=== PATIENT | male | born 1960 | race Caucasian/White ===

== ENCOUNTER 2019-11-16 09:25 | Emergency (ER) | payer BC, SELFPAY ==
[2019-11-16 09:45] VITALS: BP 133/75; PULSE 88; RESP 20; TEMP 36.3; O2SAT 98
--- NOTE | 2019-11-16 10:20 | ED.GENADULT ---
HPI - General Adult General Chief complaint: Ear Stated complaint: ear pain/sinus issues Time Seen by Provider: 11/16/19 10:20 Source: patient and RN notes reviewed Mode of arrival: ambulatory Limitations: no limitations History of Present Illness HPI narrative: 59-year-old male presents with complaints of left ear otalgia, decrease hearing, nasal congestion, and rhinorrhea for 3 days. Ear infection 1 month ago. Denies drainage or tinnitus. Denies injury to ear. Rhinorrhea and nasal congestion. Denies cough. No high fevers or chills. Denies nausea, vomiting, and dizziness. Some parts of this dictation were generated by voice recognition software and may contain typographical and/or grammatical inaccuracies. Related Data Home Medications Medication Instructions Recorded Confirmed lisinopril 40 mg PO DAILY 10/14/19 11/16/19 pantoprazole 40 mg PO DAILY 10/14/19 11/16/19 simvastatin 40 mg PO DAILY 10/14/19 11/16/19 Allergies Allergy/AdvReac Type Severity Reaction Status Date / Time cefdinir Allergy Unknown Diarrhea Verified 10/14/19 10:29 Review of Systems Review of Systems: Narrative: CONSTITUTIONAL: Denies fever, chills, sweats. EYES: Denies visual changes, redness, discharge. ENT: Denies sore throat, ear drainage. Complains of LT otalgia, decrease hearing, rhinorrhea, congestion. CARDIOVASCULAR: Denies chest pain, palpitations, edema. RESPIRATORY: Denies dyspnea, wheezing, cough. GASTROINTESTINAL: Denies abdominal pain, nausea, vomiting, diarrhea. GENITOURINARY: Denies dysuria, hematuria, abnormal discharge. SKIN: Denies rash or itching. MUSCULOSKELETAL: Denies acute back pain, joint pain, or myalgia. NEUROLOGIC: Denies numbness or focal weakness. PSYCHIATRIC: Denies anxiety or depression. All systems reviewed & are unremarkable except as noted in HPI and below. [facility] Past Medical History Medical History (Updated 11/16/19 @ 14:11 by ANA Cedillo) Arthritis History of gastroesophageal reflux (GERD) Hyperlipidemia Hypertension Surgical History Surgical History (Updated 11/16/19 @ 13:38 by ANA Cedillo) No significant past surgical history Family History Family History (Updated 12/16/18 @ 10:56 by DOCTOR UNKNOWN) Grandparent Diabetes mellitus Father Acute myocardial infarction Social History Social History (Updated 11/16/19 @ 13:39 by ANA Cedillo) Smoking packs per day: 0.5 Smoking cigarettes per day: 10.0 Years smoked: 30 Smoking pack-years: 15.00 Smoking status: Current every day smoker Tobacco type: cigarettes Second hand tobacco smoke exposure: No Alcohol intake: current Alcohol use details: Occasional Substance use: never Gender identity (if verbalized by the patient): Male Comments At time of signature, I have reviewed and agree with nursing past medical, surgical, social, and family history. Please see nursing chart for further information. There is no relevant family history pertinent to the presenting complaint. Exam Narrative: Exam Narrative: GENERAL: This is a well-nourished, well-developed patient, in no apparent distress. Talks in full sentences and ambulates with steady gait without dyspnea HEAD: normocephalic, atraumatic. EYES: PERRL. Sclera clear/white. Vision is grossly intact. EARS: Pinna is normal shape and contour. Clear external auditory canals. RT TM pearly sotomayor with good cone of light, no erythema or suppuration. LT TM moderate erythema and bulging, no drainage or suppuration. No tenderness with manipulation. No gross hearing deficit. NOSE: External nose normal with no obvious nasal discharge, nares with mild-moderate redness and enlarge turbinates, no rhinorrhea. THROAT: Mucous membranes moist, posterior pharynx clear. NECK: Neck supple, non-tender without lymphadenopathy, masses or thyromegaly. CARDIOVASCULAR: Regular rate and rhythm without murmurs, gallops, or rubs. RESPIRATORY: Clear to auscult
== END 2019-11-16 10:42 | disposition home or self-care (01) ==
PROVIDERS: Emergency Provider Nurse Practitioner Family; PCP Family Medicine
DX: H66.002 Acute suppurative otitis media without spontaneous rupture of ear drum, left ear (principal); J06.9 Acute upper respiratory infection, unspecified; F17.210 Nicotine dependence, cigarettes, uncomplicated; M19.90 Unspecified osteoarthritis, unspecified site; K21.9 Gastro-esophageal reflux disease without esophagitis; E78.5 Hyperlipidemia, unspecified; I10 Essential (primary) hypertension
CPT/HCPCS: 99213; G0463

== ENCOUNTER 2020-11-01 09:42 | Outpatient (CLI) | payer BC, SELFPAY ==
--- NOTE | ~2020-11-01 | CT_ITS ---
EXAMINATION: CT soft tissue neck w con DATE: 11/01/2020 10:31 INDICATION: Localized enlarged lymph nodes. TECHNIQUE: Computed tomography (CT) of the neck was performed with 75 mL Omnipaque-350 intravenous co ntrast. Automated exposure control and iterative reconstruction technique were employed. The dose-edgardo gth product was 643.64 mGy-cm. COMPARISON: None FINDINGS: The visualized portions of the lung bases demonstrate emphysema. Calcified mediastinal lymp h nodes are consistent with old granulomatous disease. There are 2.6 x 2.0 cm and 1.9 x 1.8 cm masses in superficial right parotid gland. There is a 1.5 x 1.4 cm mass in superficial left parotid gland. There is an enlarged high right internal jugular chain lymph node measuring 2.0 x 1.4 cm. There is a 3.4 x 1.8 cm lipoma in the left submandibular space. There is mucosal thickening in the paranasal sin uses. The mastoid air cells are normal. There is severe cervical spondylosis. IMPRESSION: 1. Bilateral parotid masses. The differential diagnosis includes benign mixed tumor, Warthin tumor, n odal metastatic disease, and primary malignancy. Consider ultrasound-guided fine-needle aspiration. 2. Enlarged high right internal jugular chain lymph node. Reviewed, dictated and finalized at location A. ICAL ROLL OPERATOR IMPRESSION: 1. Bilateral parotid masses. The differential diagnosis includes benign mixed t umor, Warthin tumor, vivien metastatic disease, and primary malignancy. Consider ultrasound-guided fine-needle aspiration. 2. Enlarged high right internal jugular chain lymph node.
== END 2020-11-01 09:43 | disposition home or self-care (01) ==
PROVIDERS: PCP Physician Assistant; Visit Provider Physician Assistant
DX: R59.0 Localized enlarged lymph nodes (principal)
CPT/HCPCS: 70491; Q9967

== ENCOUNTER 2020-11-18 09:07 | Outpatient (CLI) | payer BC, SELFPAY ==
--- NOTE | ~2020-11-18 | US_ITS ---
EXAMINATION: 1. US FNA w image guidance 2. US FNA additional DATE: 11/18/2020 10:27 INDICATION: Bilateral parotid masses. TECHNIQUE: The procedure and its benefits and risks were discussed with the patient. Risks specifically discusse d included bleeding, infection, and nerve injury. The patient verbalized understanding of the risks a nd agreed to proceed. The face and neck was prepped and draped in the usual sterile manner. 1% lidoc juventino was used for local anesthesia. 5 passes were made with a 25G needle into the lesion in the left parotid gland. Appropriate needle location was documented with continuous sonographic guidance. 5 passes were made with a 25G needle into the lesion in the right parotid gland. Appropriate needle location was documented with continuous sonographic guidance. There were no immediate complications. FINDINGS: Grayscale ultrasound images demonstrate needles advanced into a 2.2 cm mass in superficial left parot id gland for biopsy. Grayscale ultrasound images demonstrate needles advanced into a 3.7 cm mass in s uperficial right parotid gland IMPRESSION: 1. Ultrasound-guided fine needle aspiration of a left parotid mass. 2. Ultrasound-guided fine-needle aspiration of a right parotid mass. Reviewed, dictated and finalized at location A. GER METAL IMPRESSION: 1. Ultrasound-guided fine needle aspiration of a left parotid mass. 2. Ultrasound-guided fine-needle aspiration of a right parotid mass.
== END 2020-11-18 09:08 | disposition home or self-care (01) ==
LOC: ANHIMG 09:18
PROVIDERS: PCP Physician Assistant; Visit Provider Otolaryngology
DX: K11.8 Other diseases of salivary glands (principal)
CPT/HCPCS: 10005; 10006; 88173; 88305

== ENCOUNTER 2020-12-15 08:31 | Outpatient (CLI) | payer BC, SELFPAY ==
--- NOTE | 2020-12-15 08:49 | ECG_ITS ---
Measurements Intervals [place] Rate: 83 P: 33 MT: 184 QRS: -40 QRSD: 138 T: 2 QT: 373 QTc: 439 Interpretive Statements SINUS RHYTHM RIGHT BUNDLE BRANCH BLOCK INFERIOR INFARCT, AGE INDETERMINATE BASELINE ARTIFACT- I, II, AVR, AVL, V6 ABNORMAL ECG Electronically Signed On 12-15-2020 9:09:00 PRISON OFFICER by Abner Foster D.O.
== END 2020-12-15 08:32 | disposition home or self-care (01) ==
LOC: ANHSURGERY 08:33
PROVIDERS: PCP Physician Assistant; Visit Provider Otolaryngology
DX: I10 Essential (primary) hypertension (principal); Z01.818 Encounter for other preprocedural examination; I45.10 Unspecified right bundle-branch block
CPT/HCPCS: 93005

== ENCOUNTER → 2020-12-20 00:27 | Outpatient (CLI) | payer BC, SELFPAY ==
[2020-12-20 18:32] LABS: SARS-CoV-2 RNA PCR Negative
== END ==
PROVIDERS: PCP Physician Assistant; Visit Provider Otolaryngology
DX: Z01.812 Encounter for preprocedural laboratory examination (principal); Z20.822 Contact with and (suspected) exposure to COVID-19
CPT/HCPCS: C9803; U0003; U0005

== ENCOUNTER 2020-12-23 00:35 | Day surgery (SDC) | payer BC, SELFPAY ==
[2020-12-14 14:26] VITALS: BMI 29.5
--- NOTE | 2020-12-22 09:24 | PM.IMHP ---
H&P: HPI History of Present Illness Date/Time: 12/22/20 09:24 patient per presents for planned surgical procedure. No changes in symptoms or medical history. 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 Chief Complaint: Right parotid tumor Review of Systems Constitutional: Constitutional: Denies fatigue, Denies fever(s) and Denies lethargy Eyes: Eyes: Denies blurry vision and Denies change in vision ENT: Reports as per HPI Cardiovascular: Cardiovascular: Denies chest pain Respiratory: Respiratory: Denies cough Endocrine: Endocrine: Denies fatigue Hematologic/Lymphatic: Hematologic/Lymphatic: Denies easy bleeding, Denies easy bruising and Denies lymphadenopathy Allergic/Immunologic: Allergic/Immunologic: Denies seasonal rhinorrhea [facility] Past Medical History Medical History (Updated 11/07/20 @ 14:29 by Jose A Ricketts MD) History of gastroesophageal reflux (GERD) Hyperlipidemia Hypertension Surgical History Surgical History No significant past surgical history Family History Family History (Updated 11/07/20 @ 14:05 by Aye Gabriel MA) Grandparent Diabetes mellitus Father Acute myocardial infarction Mother Hypertension Cerebrovascular accident Social History Social History Smoking packs per day: 0.5 Smoking cigarettes per day: 10.0 Years smoked: 30 Smoking pack-years: 15.00 Smoking status: Current every day smoker Tobacco type: cigarettes Second hand tobacco smoke exposure: No Additional smoking assessment comments: 1/2ppd x 30 years Alcohol intake: current Drinks per week: 2 Substance use: never Gender identity (if verbalized by the patient): Male Spiritual care concerns: No Meds Home Medications and Allergies Home Medications Medication Instructions Recorded Confirmed Type aspirin 81 mg tablet,delayed 81 mg PO DAILY 11/20/19 12/14/20 History release xngjmpchhsfh-jea-oclsz acid-vit 1 tablet PO DAILY 11/20/19 12/14/20 History K-lycop 400 mcg-20 mcg-370 mcg tablet diclofenac sodium 75 mg 75 mg PO BID PRN #180 tablet 09/05/20 12/14/20 Rx tablet,delayed release lisinopril 40 mg tablet 40 mg PO DAILY #90 tablet 09/07/20 12/14/20 Rx acetaminophen 500 mg tablet 500 mg PO Q6H PRN 10/25/20 12/14/20 History fexofenadine 180 mg tablet 180 mg PO DAILY 10/25/20 12/14/20 History simvastatin 40 mg tablet 40 mg PO DAILY #90 tablet 10/25/20 12/14/20 Rx triamcinolone acetonide 55 mcg 1 spray INTRANASAL DAILY 10/25/20 12/14/20 History nasal spray aerosol pantoprazole 40 mg tablet,delayed 40 mg PO DAILY #90 tablet 11/24/20 12/14/20 Rx release Allergies Allergy/AdvReac Type Severity Reaction Status Date / Time cefdinir Allergy Mild Diarrhea Verified 12/14/20 14:01 Exam Const: General: cooperative, healthy appearing, comfortable, well developed and alert HENMT: Head: normal to inspection, normocephalic and atraumatic Ears: hearing grossly normal bilaterally, external ears normal, TM's normal bilaterally and EAC's normal General nose exam: Normal external nose present, Normal nares present, No nasal polyps present, Normal nasal mucous membranes and turbinates present and Normal septum present Face and sinus: abnormal facial exam ( Right-sided parotid mass/edema) Mouth: Yes Normal oral and palatal mucosa present, Yes lip normal, Yes tongue normal, Yes oropharynx normal and Yes moist mucous membranes Teeth and gingiva: dentition normal and gingiva normal Throat: posterior oropharynx normal, tonsils normal and uvula midline Eyes: General: appearance normal, both eyes and all related structures Periorbital: periorbital findings normal Eyelids: eyelids normal Conjunctivae: conjunctivae normal Sclera: sclerae normal Neck: Neck: normal visual inspection, full ROM and no lymphadenopathy Thyroid: thyroid normal Lymphatic: no lymphadenopathy noted R
[2020-12-23] VITALS (11 sets, daily range): BP systolic 107–131; BP diastolic 59–83; PULSE 91–107; RESP 16–24; TEMP 36.2–37.1; O2SAT 91–100
--- NOTE | 2020-12-23 07:01 | WPDHPUPDATE1 ---
History and Physical Update Update Date/Time: 12/23/20 07:01 History and Physical has been reviewed, including an updated exam of the patient. There are NO changes in the patient's condition. Risks, benefits, and alternatives have been discussed and questions answered. Patient agrees to proceed with procedure.
--- NOTE | 2020-12-23 07:02 | WPDHPUPDATE1 ---
History and Physical Update Update Date/Time: 12/23/20 07:02 History and Physical has been reviewed, including an updated exam of the patient. There are NO changes in the patient's condition. Risks, benefits, and alternatives have been discussed and questions answered. Patient agrees to proceed with procedure.
[2020-12-23] MEDS: LACTATED RINGERS 1,000 ML 30 ML IV CONT ×2 (08:43→12:19)
--- NOTE | 2020-12-23 08:49 | WPDANESEPPF ---
Anes - Initial Pre Proc Eval Procedure: Operation Date: 12/23/20 10:00 Proposed Procedures p Right Parotidectomy - Jose A Ricketts MD Date/Time: 12/23/20 08:49 Surgeon: Jose A Ricketts MD Pre Op Diagnosis: Right Parotid Mass Patient Data Age: 60 Gender: M Height: 6 ft 2 in Weight: 109 kg Last Vital Signs Temp 97.2 F L 12/23/20 08:19 Pulse 91 12/23/20 08:19 Resp 16 12/23/20 08:19 BP 122/68 12/23/20 08:19 Pulse Ox 100 12/23/20 08:19 Allergies Allergy/AdvReac Type Severity Reaction Status Date / Time cefdinir Allergy Mild Diarrhea Verified 12/23/20 08:28 Home Medications Medication Instructions Recorded Confirmed Type aspirin 81 mg tablet,delayed 81 mg PO DAILY 11/20/19 12/23/20 History release rihnglfcnelc-cal-owtxh acid-vit 1 tablet PO DAILY 11/20/19 12/23/20 History K-lycop 400 mcg-20 mcg-370 mcg tablet diclofenac sodium 75 mg 75 mg PO BID PRN #180 tablet 09/05/20 12/23/20 Rx tablet,delayed release lisinopril 40 mg tablet 40 mg PO DAILY #90 tablet 09/07/20 12/23/20 Rx acetaminophen 500 mg tablet 500 mg PO Q6H PRN 10/25/20 12/23/20 History fexofenadine 180 mg tablet 180 mg PO DAILY 10/25/20 12/14/20 History simvastatin 40 mg tablet 40 mg PO DAILY #90 tablet 10/25/20 12/23/20 Rx triamcinolone acetonide 55 mcg 1 spray INTRANASAL DAILY 10/25/20 12/23/20 History nasal spray aerosol pantoprazole 40 mg tablet,delayed 40 mg PO DAILY #90 tablet 11/24/20 12/23/20 Rx release Patient hx anesthesia problems: none Family hx anesthesia problems: none PMFSH Past Medical History Medical History (Updated 11/07/20 @ 14:29 by Jose A Ricketts MD) History of gastroesophageal reflux (GERD) Hyperlipidemia Hypertension Surgical History Surgical History No significant past surgical history Family History Family History (Updated 11/07/20 @ 14:05 by Aye Gabriel MA) Grandparent Diabetes mellitus Father Acute myocardial infarction Mother Hypertension Cerebrovascular accident Social History Social History Smoking packs per day: 0.5 Smoking cigarettes per day: 10.0 Years smoked: 30 Smoking pack-years: 15.00 Smoking status: Current every day smoker Tobacco type: cigarettes Second hand tobacco smoke exposure: No Additional smoking assessment comments: 1/2ppd x 30 years Alcohol intake: current Drinks per week: 2 Substance use: never Living arrangements: with family Gender identity (if verbalized by the patient): Male Spiritual care concerns: No Anes - Eval Final PreProcedure Day of Procedure 12/23/20 08:49 Patient weight: obese Heart: regular rate and rhythm Lungs: clear to auscultation Airway: Mallampati scale class III Neurological: alert and oriented Last oral intake: >/= 8 hours ASA classification: III Emergent: no Anesthetic plan: proceed Anesthesia type and monitoring: general ETT and standard monitoring Informed Consent: The patient's anesthetic plan and its attendant risks and benefits were discussed with the patient/family/POA. Questions were solicited and answers provided to the satisfaction of the patient/family/POA.
[2020-12-23] MEDS: ceFAZolin 2 GM/D5W 50 ML 2 GM/50 ML BAG IVPB (09:37)
[2020-12-23] MEDS: LIDO 1%/EPINEPHRINE 1:100,000 50 ML VIAL INFILTRATE (09:57)
--- NOTE | 2020-12-23 11:16 | SUR.OPER ---
Frozen section sent with JEREMIAH Fuentes and received in pathology by Sushma
[2020-12-23] MEDS: NEOMYCIN/POLYMYXIN/BACITRACIN OINTMENT 15 GM TUBE 1 APPLIC TOPICAL (12:06)
--- NOTE | 2020-12-23 12:42 | PM.PROC ---
Procedure Note - Detailed Date of procedure: 12/23/20 Pre-op diagnosis: Right Parotid Mass Post-op diagnosis: same Procedure performed: Right parotidectomy with facial nerve monitor Description of procedure: The patient was correctly identified and consent was verified in the preoperative holding area. The patient was then brought to the operating room and a time-out was performed. General anesthesia was induced and endotracheal tube was secured the patient's airway and taped to the left lip. The patient was then prepped and draped for the aforementioned procedures. 5 cc of 1% X using 5 cc of epinephrine was injected deep to presents surgical modified Curly incision on the right side. The skin was incised using a 15 blade. Blunt dissection as well as dissection with Bovie electrocautery was carried out and a plane was developed superficial to the parotid fascia. The tumor was then identified inferiorly. Dissection then occurred around the tumor. The facial nerve was identified deep in the deep plane using facial nerve monitoring. The tumor was then removed in its entirety there was a very large cystic component as well as firm anterior component. Both of which were confirmed as Warthin's on frozen pathology. The wound was then copiously irrigated. A 10 Mack suction drain was then placed and sutured in place. The wound was closed in the deep layers with 3 0 Vicryl sutures and the skin was closed with a 5 0 running nylon suture. Hemostasis was excellent and care of the patient was turned over to Anesthesiology. I performed all dictated portions Anesthesia: GLMA Surgeon: Jose A Ricketts MD Estimated blood loss (mL): 20 Drains: Yes Packing: No Pathology: yes Complications: No immediate complications Condition: stable Disposition: PACU Findings: Right large bilobed tumor cystic component as well as firm component.
== END 2020-12-23 14:45 | disposition home or self-care (01) ==
PROVIDERS: PCP Physician Assistant; Visit Provider Otolaryngology
PROC: (CPT 42410; principal; 2020-12-23 10:00)
DX: D11.0 Benign neoplasm of parotid gland (principal); K21.9 Gastro-esophageal reflux disease without esophagitis; E78.5 Hyperlipidemia, unspecified; I10 Essential (primary) hypertension; F17.210 Nicotine dependence, cigarettes, uncomplicated; Z79.82 Long term (current) use of aspirin
CPT/HCPCS: 42410; 88305; 88331; A9270; J0330; J0690; J1100; J2250; J2405; J2704; J3010; J7120

== ENCOUNTER 2020-12-23 17:05 | Emergency (ER) | payer BC, SELFPAY ==
[2020-12-23 17:05] VITALS: BP 0/0; PULSE 0; RESP 0; O2SAT 98
[2020-12-23 17:08] VITALS: PULSE 25
--- NOTE | 2020-12-23 17:37 | ED.CPR ---
HPI - CPR General Chief Complaint: Cardiac Arrest/CPR Stated Complaint: CARDIAC ARREST Time Seen by Provider: 12/23/20 17:13 Source: family and EMS Mode of arrival: EMS Limitations: clinical condition History of Present Illness HPI narrative: Patient is 60 years old white male brought to the emergency room by ambulance with cardiopulmonary arrest. CPR was in process on arrival to the emergency room, started 1 hour prior to arrival. Patient had right parotid gland mass removed earlier today. Patient went home, 2 to 3 hours after the surgery, told his family that he been feeling warm with clammy skin, the family noticed that the patient have trouble breathing, called the EMT for unresponsiveness with agonal breathing. When the ambulance arrived CPR was in process by the family. The monitor showed V. fib. Patient got shocked x3, and the monitor showed asystole then V. tach, orotracheal intubation was difficult because of diffuse swelling of the throat, Og tube was used, patient received amiodarone 300 mg, atropine x3 and epinephrine x8 prior to arrival, patient was alternating between PEA and asystole for the last 30 minutes prior to arrival to the emergency room. On arrival monitor showed asystole. Related Data Home Medications Medication Instructions Recorded Confirmed aspirin 81 mg tablet,delayed 81 mg PO DAILY 11/20/19 12/23/20 release yigjpmuleyek-oqm-anmej acid-vit 1 tablet PO DAILY 11/20/19 12/23/20 K-lycop 400 mcg-20 mcg-370 mcg tablet acetaminophen 500 mg tablet 500 mg PO Q6H PRN 10/25/20 12/23/20 fexofenadine 180 mg tablet 180 mg PO DAILY 10/25/20 12/14/20 triamcinolone acetonide 55 mcg 1 spray INTRANASAL DAILY 10/25/20 12/23/20 nasal spray aerosol Allergies Allergy/AdvReac Type Severity Reaction Status Date / Time cefdinir Allergy Mild Diarrhea Verified 12/23/20 08:28 Review of Systems Review of Systems: ROS unobtainable: Yes unobtainable due to medical condition PMFSH Past Medical History Medical History History of gastroesophageal reflux (GERD) Hyperlipidemia Hypertension Surgical History Surgical History No significant past surgical history Family History Family History Grandparent Diabetes mellitus Father Acute myocardial infarction Mother Hypertension Cerebrovascular accident Social History Social History Smoking packs per day: 0.5 Smoking cigarettes per day: 10.0 Years smoked: 30 Smoking pack-years: 15.00 Smoking status: Current every day smoker Tobacco type: cigarettes Second hand tobacco smoke exposure: No Additional smoking assessment comments: 1/2ppd x 30 years Alcohol intake: current Drinks per week: 2 Substance use: never Gender identity (if verbalized by the patient): Male Spiritual care concerns: No Exam Narrative: Exam Narrative: General appearance: Well-developed, well-nourished Skin: Mottled cold skin, red dusky color of the upper chest and face Head: Normocephalic, nontraumatic Eyes: Clear conjunctiva, pupils dilated, not reactive to light ENT: Og tube in place, surgical scar at the right parotid area Neck: Diffuse swelling at the submandibular area mainly on the left side Chest and respiratory: No respiratory activity, clear lungs with CPR Abdomen: Distended and firm Vascular: Pulseless Course Course Emergency Course: MDM - Cardiac Arrest/CPR MDM Narrative Medical decision making narrative: Drug reaction, angioedema, coronar
--- NOTE | 2020-12-23 18:39 | PC.NURSE ---
1705 EMS arrived 1706 EPI given via IO 1708 pulse check, no pulse CPR continued via KULWANT device 1709 EPI given via IO 1710 pulse check, no pulse, CPR continued 1711 EPI given via IO 1712, pulse check, no pulse, EDP called code, compressions stopped, time of .
--- NOTE | 2020-12-23 18:40 | PC.NURSE ---
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 EDP aware. PCP notified. Family requesting autopsy and stated they will pay for it. road gang supervisor informed.
--- NOTE | 2020-12-23 21:21 | PC.NURSE ---
Pt is not a candidate and can be released at this time per [facility]. SABA Leiva
== END 2020-12-23 23:15 | disposition expired ==
PROVIDERS: Emergency Provider Emergency Medicine; PCP Physician Assistant
DX: I46.9 Cardiac arrest, cause unspecified (principal); I49.9 Cardiac arrhythmia, unspecified; Z98.890 Other specified postprocedural states; K21.9 Gastro-esophageal reflux disease without esophagitis; E78.5 Hyperlipidemia, unspecified; I10 Essential (primary) hypertension; Z79.82 Long term (current) use of aspirin; F17.210 Nicotine dependence, cigarettes, uncomplicated
CPT/HCPCS: 36680; 92950; 99285; J0171; J0461; J7120